=== PATIENT | male | born 1975 | race Caucasian/White ===

== ENCOUNTER 2019-12-24 20:29 | Emergency (ER) | payer OTHER, SELFPAY ==
[2019-12-24 20:39] VITALS: BP 170/103; PULSE 95; RESP 19; O2SAT 97; BMI 36.9
[2019-12-24 20:48] VITALS: BP 170/103; PULSE 95; RESP 19; TEMP 36.7; O2SAT 97; BMI 37.0
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
[2019-12-24 21:06] VITALS: BP 170/103; PULSE 95; RESP 19; TEMP 36.7; O2SAT 97
== END 2019-12-24 21:20 | disposition home or self-care (01) ==
PROVIDERS: Emergency Provider Nurse Practitioner Family
DX: T23.252A Burn of second degree of left palm, initial encounter (principal); X15.0XXA Contact with hot stove (kitchen), initial encounter; Y92.010 Kitchen of single-family (private) house as the place of occurrence of the external cause; Z23 Encounter for immunization
CPT/HCPCS: 90471; 90715; 99201

== ENCOUNTER 2020-02-22 08:56 | Emergency (ER) | payer OTHER, SELFPAY ==
[2020-02-22 09:00] VITALS: BP 149/85; PULSE 87; RESP 14; TEMP 36.9; O2SAT 96; BMI 34.4
--- NOTE | 2020-02-22 09:33 | HMH.EDUTC ---
[facility] [place] Dis[place] Clinical Impression: Malaise Disposition: Home, Self-Care Condition on Discharge: Good Instructions: Preventing the Spread of Coronavirus Discharge Instructions Additional Instructions: You have been tested for COVID19. Please assume you are positive and isolate as if you are positive until results received. I have sent some medicine to help your symptoms. Please return if you get worse. Vitamin D, Vitamin C and zinc might also help. Prescriptions: Ondansetron [Ondansetron Odt 8mg Tab] 8 mg PO TID PRN 10 Days #30 tab PRN Reason: Nausea Transmission Status: Pending to [facility] predniSONE [Prednisone 20mg Tab] 20 mg PO BID 5 Days #10 tab Transmission Status: Pending to [facility] Albuterol Sulfate [Proair Hfa] 2 puffs IH Q4HP PRN 30 Days #1 hfa.aer.ad PRN Reason: Wheezing Transmission Status: Pending to [facility] Referrals: PCP,No [Primary Care Provider] - Forms: Work/School Release Time of Disposition: 09:37 Medical Decision Making - Roby Inquiry Pt receiving controlled substance: No Vital Signs: 02/22/20 09:00 Temperature 98.5 F Temperature Source Oral Pulse Rate [Left Brachial] 87 Respiratory Rate 14 Blood Pressure [Left Arm] 149/85 H Blood Pressure Mean [Left Arm] 106 Blood Pressure Source [Left Arm] Automatic Cuff Blood Pressure Position [Left Arm] Sitting 02 Sat by Pulse Oximetry 96 Oxygen Delivery Method Room Air Orders (Tests/Meds): ORDERS Category Date Time Status Covid-19 Nasal PCR Sendout P&C Routine Lab 02/22/20 09:03 Ordered [facility] [place] HPI - General Stated complaint: headcahe, stomach ache, nausea, diarrhea Time Seen by Provider: 02/22/20 09:33 Mode of Arrival: Ambulatory Source of Information: Patient Limitations: No Limitations Description of Symptoms (Recalled from Triage Doc. by RN): PATIENT C/O HEADACHES, SOA, NAUSEA, AND DIARRHEA X 2 DAYS HEENT Symptoms (Recalled from RN notes): Yes Resp Symptoms (Recalled from RN notes): No Skin Symptoms (Recalled from RN notes): No MS Symptoms (Recalled from RN notes): No Functional Status (Recalled from RN notes): WNL - History of Present Illness Provider Complaint: Headache, stomach ache, nausea, diarrhea X 2 days. BOdy aches, chills but no fever. No specific exposure to COVID19. Onset (ago): day(s) (2) Location: chest, abdomen Relieving factors: none Exacerbating factors: none Associated symptoms: headaches, malaise, nausea/vomiting Treatments prior to arrival: none - Related Data Previous Rx's Medication Instructions Recorded Albuterol Sulfate [Proair Hfa] 2 puffs IH Q4HP PRN 30 Days #1 02/22/20 hfa.aer.ad Ondansetron [Ondansetron Odt 8mg 8 mg PO TID PRN 10 Days #30 tab 02/22/20 Tab] predniSONE [Prednisone 20mg 20 mg PO BID 5 Days #10 tab 02/22/20 Tab] Allergies Allergy/AdvReac Type Severity Reaction Status Date / Time No Known Allergies Allergy Verified 12/24/19 20:51 - Worker's Comp Is this a Worker's Comp case?: No [facility] History - Hepatitis A Screen Drug use history?: No High risk sexual behaviors?: No History of sexually transmitted infection?: No Currently employed?: No Childcare worker?: No Do you have indoor plumbing?: Yes Do you have electricity?: Yes Attestation statement:: This patient has been screened for Hepatitis A risk factors. I have reviewed the patient's past medical history: Yes - Social History Alcohol Intake: never Occupational Status: other ROS Obtained: Yes All systems reviewed & no additional complaints - Constitutional Constitutional: Reports body ache, Reports chills, Denies fever(s), Reports headache(s), Reports malaise - ENT Ears, Nose, Mouth, and Throat: Reports headache(s) - Respiratory Respiratory: Reports shortness of breath - Gastrointestinal Gastrointestingal: Reports: diarrhea, vomiting Physical Exam - General General appearance: alert, in no apparent distress, oth
[2020-02-22 09:40] VITALS: BP 149/85; PULSE 87; RESP 14; TEMP 36.9; O2SAT 96
[2020-02-23 11:56] LABS: Covid-19 Nasal PCR Sendout P&C Negative
== END 2020-02-22 09:43 | disposition home or self-care (01) ==
PROVIDERS: Emergency Provider Physician Assistant
DX: Z20.822 Contact with and (suspected) exposure to COVID-19 (principal); R53.1 Weakness; R51.9 Headache, unspecified; R11.0 Nausea; R19.7 Diarrhea, unspecified
CPT/HCPCS: 99202; G0463; U0004

== ENCOUNTER 2020-11-26 19:16 | Emergency (ER) | payer OTHER, SELFPAY ==
--- NOTE | 2020-11-26 20:22 | PC.NURSE ---
Pt just wants to be tested for covid. Romeo Torres wrote an outpt order. VSS. BP 143/89, HR 86, RR19, Sp02 99%, temp 99.0
[2020-11-26 20:25] VITALS: BP 00/00; PULSE 0; RESP 0; TEMP -17.7; TEMP 0
== END 2020-11-26 20:25 | disposition left against medical advice (07) ==
PROVIDERS: Emergency Provider Student in an Organized Health Care Education/Training Program; PCP Nurse Practitioner Family
DX: Z53.21 Procedure and treatment not carried out due to patient leaving prior to being seen by health care provider (principal)
CPT/HCPCS: 99211

== ENCOUNTER → 2020-11-26 20:25 | Outpatient (CLI) | payer OTHER, SELFPAY ==
[2020-11-26 20:58] LABS: Influenza A, PCR Not Detected (NotDetected); Influenza B, PCR Not Detected (NotDetected)
[2020-11-26 21:41] LABS: Coronavirus 19, PCR Detected (NotDetected)
== END ==
PROVIDERS: PCP Nurse Practitioner Family; Visit Provider Emergency Medicine
DX: Z20.822 Contact with and (suspected) exposure to COVID-19 (principal); U07.1 COVID-19
CPT/HCPCS: C9803; U0003; U0005

== ENCOUNTER → 2021-11-30 13:35 | Outpatient (CLI) | payer OTHER, SELFPAY ==
--- NOTE | 2021-11-30 13:36 | CA_ITS ---
APPROVED REPORT EXAM: Comprehensive 2D, Doppler, and color-flow Echocardiogram Poultry Field Service Technician: Aliyah Askew CRT Ht: 5 ft 7 in Wt: 232lbs BSA: 2.15 BP: 140/80 mmHg Indications: cp, neck pain, cirrhosis 2D Dimensions LVOT 2.01 cm (M/F) 1.5-2.5 LA Volume 58.90 mL LA Volume Index 26.70 mL/m2 (M/F) 16-34 M-Mode Dimensions RVDd 1.93 cm (0.9-2.6) LA Diam 4.54 cm (1.9-4.0) LVDd 5.83 cm (3.5-5.7) Ao Diam 3.92 cm (2.0-3.7) LVDs 3.59 cm (3.5-5.7) IVSd 1.23 cm (0.6-1.1) PWd 1.06 cm (0.6-1.1) EF (Teich) 67.90% FS 38.40% EDV (Teich) 168.50 mL TAPSE 3.15 (<1.7) ESV (Teich) 54.10 mL LV Diastology E Decel Time 200.00 (160-240 msec) E/A Ratio 1.05 MED E' 8.70 (< 7 cm/sec) MED A' 12.10 cm/s E'/MED E' Ratio 12.10 (>14) LAT E' 14.00 (<10 cm/sec) LAT A' 9.40 cm/s E/LAT E' Ratio 7.52 (>14) Aortic Valve AO Peak GR. 12.90 mmHg Mitral Valve MV A Velocity 100.00 (40-130 cm/s) E/A Ratio 1.05 MV Decel. Time 200.00 (160-240 ms) Pulmonary Valve PV Peak Velocity 226.00 (50-150 cm/s) Tricuspid Valve TR P. Velocity 290.00 cm/s RAP Estimate 10.00 mmHg RVSP 43.70 mmHg Left Ventricle Left atrium is normal size, left ventricle is normal size, there is no concentric left ventricular hypertrophy, estimated ejection fraction 55% with no regional wall motion abnormality, diastolic parameters are within normal range. Right Ventricle Right atrium and right ventricle are normal size and contractility. Aortic Valve Aortic valve is grossly normal, there is no aortic stenosis or aortic insufficiency. Mitral Valve Mitral valve grossly normal, there is trace mitral regurgitation. Tricuspid Valve Tricuspid grossly normal, there is trace tricuspid regurgitation, calculated right ventricular systolic pressure within normal range. Pulmonic Valve Pulmonic valve is poorly visualized. Great Vessels Aortic root is normal size. Inferior vena cava is normal size with normal inspiratory collapse. Pericardium No significant pericardial effusion noted. Conclusion 1. Normal left ventricular size preserved left ventricular systolic function, estimated ejection fraction 55% with no regional wall motion abnormality, diastolic parameters are within normal range. 2. Trace mitral and tricuspid regurgitation. Calculated right ventricular systolic pressure within normal range. 3. No significant pericardial effusion. 4. Inferior vena cava normal size with normal inspiratory collapse. Electronically signed by : Saleem Corral MD 11/30/2021 20:08:43
--- NOTE | 2021-11-30 13:36 | CA_ITS ---
APPROVED REPORT Exam: Exercise Treadmill Technologist: Cherelle Montoya, Ht: 5 ft 7 in Wt: 232 lbs BSA: 2.15 m2 HR: 69 bpm BP: 122/66 mmHg Rhythm: SR Medical History Medical History: HTN Medications: Lisinopril,,,,, Aspirin,,,,, Metoprolol,,,,, ONdansetron,,,,, Multivitamin,,,,, BuPRenorphinE,,,,, NaloXone,,,,, Allergies: No known drug allergies Cardiac Risk Factors: HTN, FHX of CAD Stress Test Details Test: Rik HR Resting HR: 71 bpm Max Heart Rate (APMHR): 174 bpm Max HR Achieved: 149 bpm Target HR (85% APMHR): 147 bpm % of APMHR: 85 Recovery HR: 69 bpm BP Resting BP: 122/66 mmHg Max BP: 189/88 mmHg Recovery BP: 137.0/81.0 mmHg ECG Resting ECG: SR Clinical Exercise duration: 09:57 min Highest Stage Achieved: Exercise capacity: 12.8 METs Stress ECG Conclusion PT HAD SOA WITH PEAK EXERCISE. NO CP. PAC NOTED. No ECG changes of ischemia. Normal test Test Summary REST . . . . . . . Standing REST . . . . . . . Sitting REST 11:56 0.0 0.0 71 . 122/ 66 . . Stage 1 01:00 10.0 1.7 96 . . . . Stage 1 02:00 10.0 1.7 92 . . . . Stage 1 03:00 10.0 1.7 96 . 130/ 80 . . Stage 2 01:00 12.0 2.5 106 . . . . Stage 2 02:00 12.0 2.5 108 . . . . Stage 2 03:00 12.0 2.5 111 . 135/ 78 . . Stage 3 01:00 14.0 3.4 124 . . . . Stage 3 02:00 14.0 3.4 129 . . . . Stage 3 03:00 14.0 3.4 137 . . . . Stage 4 00:57 16.0 4.2 148 . . . Stop exercise at 09:57 RECOVERY 01:00 0.0 0.0 122 . . . . RECOVERY 02:00 0.0 0.0 102 . 189/ 88 . . RECOVERY 03:00 0.0 0.0 77 . 174/ 73 . . RECOVERY 04:00 0.0 0.0 73 . 174/ 73 . . RECOVERY 05:00 0.0 0.0 69 . 150/ 72 . . RECOVERY 05:27 0.0 0.0 72 . 137/ 81 . . Electronically signed by : Rakesh Sanabria MD 11/30/2021 16:35:50
[2021-11-30 15:25] LABS: Basophils % 0.3 % (0.1-2.0); Eosinophils # 0.2 K/mm3 (0.0-0.4); Eosinophils % 2.1 % (0.1-12.0); Hematocrit 43.3 % (42.0-52.0); Hemoglobin 13.3 g/dL (14.1-18.0); Lymphocytes % 18.2 % (10-50); Mean Corpuscular HGB Conc 30.7 g/dL (31.8-35.4); Mean Corpuscular Hemoglobin 28.7 pg (27.0-31.2); Mean Corpuscular Volume 93.5 fl (80-94); Mean Platelet Volume 9.6 fl (7.4-10.4); Monocytes # 0.6 K/mm3 (0.1-1.0); Monocytes % 5.2 % (1.7-9.3); Neutrophils # 8.2 K/mm3 (1.8-7.8); Neutrophils % 74.2 % (37.0-80.0); Platelet Count 314 K/mm3 (142-424); Red Blood Count 4.64 M/mm3 (4.60-6.20); Red Cell Distribution Width 12.7 % (11.5-17.5); White Blood Count 11.1 K/mm3 (4.8-10.8)
[2021-11-30 15:43] LABS: Ammonia 10 umol/L (9-30)
[2021-11-30 15:44] LABS: Prothrombin Time 10.8 seconds (10.1-12.5)
[2021-11-30 16:45] LABS: Alanine Aminotransferase 29 U/L (12-78); Albumin Level 4.2 g/dl (3.5-5.0); Albumin/Globulin Ratio 1.4 (1.1-1.8); Alkaline Phosphatase 94 U/L (38-126); Anion Gap 16.5 mEq/L (5-15); Aspartate Amino Transferase 27 U/L (17-59); Bilirubin,Total 0.2 mg/dl (0.2-1.3); Blood Urea Nitrogen 16 mg/dl (9-20); Calcium 9.2 mg/dl (8.4-10.2); Carbon Dioxide 28 mmol/L (22.0-30.0); Chloride 102 mmol/L (98-107); Estimated Glomerular Filt Rate 104 ml/min (>60); GFR (African American) 126 ML/MIN (>60); Globulin 2.9 g/dL (1.3-3.2); Glucose 83 mg/dl (74-100); Potassium 4.5 mmoL/L (3.5-5.1); Sodium 142 mmol/L (136-145); Total Protein,Serum 7.1 g/dl (6.3-8.2)
== END ==
PROVIDERS: Student in an Organized Health Care Education/Training Program; PCP Family Medicine; Visit Provider Family Medicine
DX: R07.9 Chest pain, unspecified (principal); R10.11 Right upper quadrant pain
CPT/HCPCS: 36415; 80053; 82140; 85025; 85610; 93017; 93306

== ENCOUNTER 2023-05-24 16:31 | Outpatient (CLI) | payer OTHER, SELFPAY ==
[2023-05-24 16:46] LABS: Basophils % 0.4 % (0.1-2.0); Eosinophils # 0.3 K/mm3 (0.0-0.4); Eosinophils % 2.9 % (0.1-12.0); Hemoglobin 13.7 g/dL (14.1-18.0); Lymphocytes # 2.1 K/mm3 (0.7-4.5); Lymphocytes % 19.8 % (10-50); Mean Corpuscular HGB Conc 32.7 g/dL (31.8-35.4); Mean Corpuscular Hemoglobin 30.5 pg (27.0-31.2); Mean Corpuscular Volume 93.5 fl (80-94); Mean Platelet Volume 9.3 fl (7.4-10.4); Monocytes # 0.6 K/mm3 (0.1-1.0); Monocytes % 5.9 % (1.7-9.3); Neutrophils # 7.5 K/mm3 (1.8-7.8); Platelet Count 283 K/mm3 (142-424); Red Blood Count 4.49 M/mm3 (4.60-6.20); Red Cell Distribution Width 13.5 % (11.5-17.5); White Blood Count 10.6 K/mm3 (4.8-10.8)
[2023-05-24 17:23] LABS: Alanine Aminotransferase 58 U/L (12-78); Albumin Level 4.6 g/dl (3.5-5.0); Albumin/Globulin Ratio 1.5 (1.1-1.8); Alkaline Phosphatase 77 U/L (38-126); Anion Gap 14.5 mEq/L (5-15); Aspartate Amino Transferase 63 U/L (17-59); Bilirubin,Total 0.5 mg/dl (0.2-1.3); Blood Urea Nitrogen 13 mg/dl (9-20); Calcium 9.8 mg/dl (8.4-10.2); Carbon Dioxide 27 mmol/L (22.0-30.0); Chloride 106 mmol/L (98-107); Estimated Glomerular Filt Rate 103 ml/min (>60); GFR (African American) 125 ML/MIN (>60); Globulin 3.1 g/dL (1.3-3.2); Glucose 100 mg/dl (74-100); Potassium 4.5 mmoL/L (3.5-5.1); Sodium 143 mmol/L (136-145); Total Protein,Serum 7.7 g/dl (6.3-8.2)
[2023-05-24 17:28] LABS: C-Reactive Protein 5.5 mg/L (0-4)
[2023-05-24 17:53] LABS: Erythrocyte Sedimentation Rate 24 mm/hr (0-15)
== END 2023-05-24 23:59 | disposition home or self-care (01) ==
LOC: LAB.DROPOF 16:31
PROVIDERS: PCP Family Medicine; Visit Provider Family Medicine
DX: R30.0 Dysuria (principal); R10.9 Unspecified abdominal pain
CPT/HCPCS: 80053; 85025; 85651; 86140

== ENCOUNTER 2023-06-30 15:07 | Emergency (ER) | payer OTHER, SELFPAY ==
--- NOTE | 2023-06-30 15:06 | ECG_ITS ---
APPROVED REPORT Exam: Resting ECG HR:161 bpm ECG Measurements Heart Rate 161 AXES QRSd 80 QRS 22 QT 263 T 50 QTc 352 Conclusion ATRIAL FLUTTER/TACHYCARDIA WITH RAPID VENTRICULAR RESPONSE MODERATE ST DEPRESSION [0.05+ mV ST DEPRESSION] CRITICAL TEST RESULT INTERPRETATION BASED ON A DEFAULT AGE OF 40 YEARS UNCONFIRMED REPORT Electronically signed by : Claus Ndiaye, 06/30/2023 23:05:42
--- NOTE | 2023-06-30 15:23 | XR_ITS ---
FINAL REPORT CLINICAL HISTORY: dyspnea COMPARISON: None FINDINGS: A single portable view of the chest was obtained. The heart size and pulmonary vascularity are within normal limits. The mediastinum is within normal limits. No acute pulmonary abnormality is identified. The bony thorax is intact. IMPRESSION: No acute pulmonary abnormality is identified. Reviewed, Interpreted and Dictated by Zach Barker MD Transcribed by Sandrita Hdez Authenticated and [facility]
[2023-06-30 15:28] LABS: Basophils # 0.1 K/mm3 (0-0.2); Basophils % 0.6 % (0.1-2.0); Eosinophils # 0.2 K/mm3 (0.0-0.4); Eosinophils % 1.2 % (0.1-12.0); Hematocrit 43.4 % (42.0-52.0); Hemoglobin 14.4 g/dL (14.1-18.0); Lymphocytes # 3.2 K/mm3 (0.7-4.5); Lymphocytes % 24.3 % (10-50); Mean Corpuscular HGB Conc 33.3 g/dL (31.8-35.4); Mean Corpuscular Hemoglobin 30.9 pg (27.0-31.2); Mean Corpuscular Volume 92.8 fl (80-94); Mean Platelet Volume 9.5 fl (7.4-10.4); Monocytes # 0.8 K/mm3 (0.1-1.0); Monocytes % 5.9 % (1.7-9.3); Neutrophils # 8.9 K/mm3 (1.8-7.8); Neutrophils % 68.1 % (37.0-80.0); Platelet Count 292 K/mm3 (142-424); Red Blood Count 4.67 M/mm3 (4.60-6.20); Red Cell Distribution Width 13.9 % (11.5-17.5); White Blood Count 13.1 K/mm3 (4.8-10.8)
[2023-06-30 15:33] LABS: Chloride 106 mmol/L (98-107); Potassium 3.4 mmoL/L (3.5-5.1); Sodium 143 mmol/L (136-145)
[2023-06-30 15:34] VITALS: BP 188/126; PULSE 172; RESP 23; TEMP 37.2; O2SAT 98; BMI 34.5
[2023-06-30 15:35] LABS: Alanine Aminotransferase 60 U/L (12-78); Aspartate Amino Transferase 48 U/L (17-59); Blood Urea Nitrogen 10 mg/dl (9-20); Estimated Glomerular Filt Rate 103 ml/min (>60); GFR (African American) 125 ML/MIN (>60)
[2023-06-30 15:36] LABS: Albumin Level 4.5 g/dl (3.5-5.0); Albumin/Globulin Ratio 1.3 (1.1-1.8); Alkaline Phosphatase 85 U/L (38-126); Anion Gap 12.4 mEq/L (5-15); Bilirubin,Total 0.3 mg/dl (0.2-1.3); Calcium 9.2 mg/dl (8.4-10.2); Carbon Dioxide 28 mmol/L (22.0-30.0); Globulin 3.5 g/dL (1.3-3.2); Glucose 122 mg/dl (74-100); Magnesium 1.9 mg/dl (1.6-2.3)
--- NOTE | 2023-06-30 15:40 | ED_ITS ---
Discharge Plan Disposition Patient Disposition: Home, Self-Care Prescriptions Prescriptions: No Action multivitamin Tablet 1 tab PO DAILY buprenorphine-naloxone 8-2 mg tablet, sublingual 2 tab SL DAILY ondansetron HCl 4 mg tablet 4 mg PO DAILY PRN (Reason: nausea and vomiting) 30 Days Qty: 30 0RF doxepin 50 mg capsule 100 mg PO HS 30 Days Qty: 60 3RF mirtazapine 15 mg tablet 15 mg PO DAILY 30 Days Qty: 30 3RF omeprazole 20 mg capsule,delayed release(DR/EC) 20 mg PO DAILY 30 Days Qty: 30 2RF lisinopril 20 mg tablet 20 mg PO DAILY 30 Days Qty: 30 2RF metoprolol succinate 25 mg tablet extended release 24 hr 25 mg PO DAILY 30 Days Qty: 30 2RF lactulose 10 gram/15 mL solution 10 ml PO TID PRN (Reason: constipation) Qty: 946 3RF aspirin 81 mg tablet,delayed release (DR/EC) 81 mg PO DAILY Qty: 90 0RF Referrals Follow up/Referrals: Nathanael Rowland MD [Primary Care Provider] - See instructions Marlo Cornejo MD [Staff Physician] - See instructions Activity Restrictions/Add. Instructions Additional Instructions/Restrictions: Follow-up with her moving picture producer Dr. Cornejo for further evaluation and management. If your atrial flutter returns please return to the emergency department. Please take the daily aspirin as discussed. Clinical Impressions Clinical Impression: Atrial flutter with rapid ventricular response, Hypokalemia Discharge ED Provider: Hannah Ndiaye HPI General Chief Complaint: Arrhythmia/Palpitations Stated Complaint: Arrythmia Time Seen by Provider: 06/30/23 15:14 History of Present Illness HPI narrative: Patient is a 48-year-old male presenting today with an arrhythmia. States intermittently over the last several years he has been having tacky dysrhythmias that only lasts a few moments has never been diagnosed with any specific arrhythmia because has not been evaluated during these episodes by physician. Has never had an episode that lasted more than a few minutes. Was in his normal state of health at a follow-up appointment for some rheumatologic complaints when he all of a sudden developed chest pain with palpitations. Arthur like he was in a pass out got lightheaded and diaphoretic at the same time EMS was called they found him to be in a narrow complex tachycardic rhythm no medications were given he was brought to the emergency department for further evaluation and management. He states that he is supposed to be on metoprolol but he is unsure as to whether or not he has been taking this medication. He denies having had any history of atrial fibrillation or atrial flutter or any other ventricular arrhythmia. Denies any exertional symptoms does have some mild shortness of breath associated with this. No other preceding symptoms today. He does not take any anticoagulation or antiplatelet agents. Related Data Home Medications Medication Instructions Recorded Confirmed buprenorphine 8 mg-naloxone 2 mg 2 tab sublingual DAILY 09/15/21 06/30/23 sublingual tablet multivitamin 1 tab PO DAILY 09/15/21 06/30/23 Previous Rx's Medication Instructions Recorded ondansetron HCl 4 mg tablet 4 mg PO DAILY PRN nausea and 12/24/22 vomiting 30 days #30 tabs doxepin 50 mg capsule 100 mg (2 x 50 mg) PO HS anxiety 05/23/23 30 days #60 caps lisinopril 20 mg tablet 20 mg PO DAILY HTN 30 days #30 tabs 05/23/23 mirtazapine 15 mg tablet 15 mg PO DAILY sleep 30 days #30 05/23/23 tabs omeprazole 20 mg capsule,delayed 20 mg PO DAILY acid reflux 30 days 05/23/23 release #30 caps metoprolol succinate 25 mg 25 mg PO DAILY HTN 30 days #30 tabs 06/08/23 tablet,extended release 24 hr lactulose 10 gram/15 mL oral 10 ml PO TID PRN constipation #946 06/28/23 solution mL aspirin 81 mg tablet,delayed 81 mg PO DAILY #90 tabs 06/29/23 release Allergies Allergy/AdvReac Type Severity Reaction Status Date / Time No Known Allergies Allergy Verified 06/30/23 14:16 [facility] Disclaimer: The information contained in this section may have been updated after the patient was seen, as this information can be updated by other users. Medical History Hepatitis A Chronic liver disease Chronic kidney disease Hepatic encephalopathy Hepatitis B Hypertension Surgical History History of arthroscopic knee surgery Family History Father Heart attack Hypertension Grandfather Heart attack Hypertension Mother Heart attack Hypertension Social History Smoking Status: Never smoker second hand exposure: Yes alcohol intake: former substance use type: former substance user current occupational status: unemployed Travel in the last 8 weeks: None household members: significant other housing: house ROS Obtained: Yes All systems reviewed & no additional complaints except as documented Physical Exam General General appearance: in distress (Diaphoretic ill-appearing) Respiratory Respiratory exam: Present normal lung sounds bilaterally; Absent respiratory distress Cardiovascular Cardiovascular exam: Present tachycardia (Heart rate 1 60-1 90 on my exam and regular cool extremities and diaphoretic poor peripheral perfusion) Abdominal Exam Abdominal exam: Present soft; Absent distention or tenderness Neurological Exam Neurological exam: Present alert and oriented X3 Psychiatric Psychiatric exam: Present anxious HEART Score HEART Score HEART Score assessment performed?: Yes History (anamnesis): Slightly suspicious ECG: Non-specific disturbance Age: 45-65 years Risk factors: 1-2 risk factors Troponin: </= normal limit HEART Score: 3 Critical Care Critical Care Time Critical Care Time: Yes Attestation: On 06/30/23, the high probability of a clinically significant, sudden or life threatening deterioration of the following system(s) required my full and direct attention, intervention and personal management. The time I documented below is in addition to time spent performing reported procedures but includes the following listed in this critical care notation. Total Time Total Critical Care Time: 35 Medical Decision Making Roby Inquiry Pt receiving controlled substance: No Vital Signs Vital Signs: 06/30/23 15:34 Temperature 98.9 F Temperature Source Oral Pulse Rate [Left Radial] 172 H Respiratory Rate 23 Blood Pressure [Right Arm] 188/126 H Blood Pressure Mean [Right Arm] 146 02 Sat by Pulse Oximetry 98 Oxygen Delivery Method Nasal Cannula Oxygen Flow Rate (LPM) 2 Lab Data Lab results reviewed: Yes I reviewed the patient's lab results. Labs: Lab Results 06/30/23 15:20: WBC 13.1 H, RBC 4.67, Hgb 14.4, Hct 43.4, MCV 92.8, MCH 30.9, MCHC 33.3, RDW 13.9, Plt Count 292, MPV 9.5, Neut % (Auto) 68.1, Lymph % (Auto) 24.3, Stearns % (Auto) 5.9, Eos % (Auto) 1.2, Baso % (Auto) 0.6, Neut # (Auto) 8.9 H, Lymph # (Auto) 3.2, Stearns # (Auto) 0.8, Eos # (Auto) 0.2, Baso # (Auto) 0.1, Sodium 143, Potassium 3.4 L, Chloride 106, Carbon Dioxide 28, Anion Gap 12.4, BUN 10, Creatinine 0.80, Estimated GFR 103, Est GFR ( Amer) 125, Glucose 122 H, Calcium 9.2, Magnesium 1.9, Total Bilirubin 0.3, AST 48, ALT 60, Alkaline Phosphatase 85, Troponin I < 0.01, Total Protein 8.0, Albumin 4.5, Globulin 3.5 H, Albumin/Globulin Ratio 1.3, TSH 2.37 06/30/23 15:20 06/30/23 15:20 Response Orders (Tests/Meds): ED MEDICATIONS Discontinued Medications Generic Name Dose Route Start Last Admin Trade Name Freq PRN Reason Stop Dose Admin Lactated Ringer's 1,000 mls @ 999 mls/hr 06/30/23 15:30 06/30/23 16:04 Lactated Ringer's 1000 Ml Bag IV 06/30/23 16:30 999 mls/hr .Q1H1M JARRED Administration Magnesium Oxide 400 mg 06/30/23 16:04 06/30/23 16:13 Magnesium Oxide 400mg Tablet PO 06/30/23 16:05 400 mg ONCE ONE Administration Potassium Chloride 60 meq 06/30/23 16:04 06/30/23 16:13 Potassium Chloride 20meq Tab PO 06/30/23 16:05 60 meq ONCE ONE Administration ORDERS Category Date Time Status CXR --portable [XR chest portable] Stat Exams 06/30/23 15:23 Completed CBC w/Auto Diff [Complete Blood Count Auto Diff] Stat Lab 06/30/23 15:20 Completed CMP [Comprehensive Metabolic Panel] Stat Lab 06/30/23 15:20 Completed Magnesium Stat Lab 06/30/23 15:20 Completed TSH [Thyroid Stimulating Hormone] Stat Lab 06/30/23 15:20 Completed Trop I [Troponin I] Stat Lab 06/30/23 15:20 Completed Troponin I Q3H Lab 06/30/23 18:30 Ordered Troponin I Q3H Lab 06/30/23 21:30 Ordered UDS [Drug Screen,Urine] Stat Lab 06/30/23 15:23 Ordered ECG Data Tracing #1: Attestation: I reviewed this ECG and interpreted as documented below: ECG Narrative: Ventricular rate of 161 atrial flutter with rapid ventricular response some ST depressions in the inferior and anterolateral leads no significant ST elevations normal axis Tracing #2: Attestation: I reviewed this ECG and interpreted as documented below: ECG Narrative: Ventricular rate of 76 normal sinus rhythm no acute ischemic changes noted there is an isolated T wave inversion in lead III but no contiguous leads intervals are maintained no conduction abnormalities noted overall normal EKG MDM Narrative Medical Decision Narrative: Very ill-appearing 48-year-old male presenting today with tacky dysrhythmia diaphoresis lightheadedness feeling like he is going to pass out. He was significant tachycardic on my initial evaluation a twelve-lead EKG was performed which appeared to be atrial flutter with 2 1 conduction no obvious ischemic changes noted there were clearly discernible P waves at a rate of about 300 this is not consistent with sinus tachycardia, RR intervals were maintained this is not consistent with atrial fibrillation. We attempted vagal maneuvers including blowing into a syringe ice in his axilla and his neck holding his legs up which were unsuccessful. Patient felt like he was going to pass out and was having significant chest pain associated with this at which point I decided I was going to do electrical cardioversion. While we were getting equipment ready we put the pads on his chest anterior posterior position and were getting medications drawn up when he spontaneously converted into sinus tachycardia. Heart rate is now in the 110s. He states he feels much better after his spontaneous conversion. Will check electrolytes troponins basic workup and reassess. Reassessment 507 patient's been asymptomatic for several hours now heart rate in the 80s labs unremarkable aside from mildly depressed potassium which was replaced. Also was given magnesium to get his magnesium greater than 2. He has been advised to follow-up with our moving picture producer given the intermittent paroxysmal atrial flutter may benefit him to follow-up with an maintenance helper utility engineer and possibly have ablation. His [id number] score is 1 opted not to start anticoagulation but antiplatelet agents given the very short duration paroxysmal episodes that he has been having. He will take a daily aspirin and states that he already has been. His risk of thromboembolism is very low. Patient has been given return precaution was discharged in stable condition.
--- NOTE | 2023-06-30 15:49 | ECG_ITS ---
APPROVED REPORT Exam: Resting ECG HR:76 bpm ECG Measurements Heart Rate 76 AXES MD 179 P 51 QRSd 92 QRS 45 QT 367 T 6 QTc 398 Conclusion SINUS RHYTHM NORMAL ECG UNCONFIRMED REPORT Electronically signed by : Claus Ndiaye, 06/30/2023 23:05:35
[2023-06-30 15:55] LABS: Troponin I < 0.01 ng/ml (0.00-0.034)
[2023-06-30] MEDS: LACTATED RINGERS 1000ML 1,000 ML 999 ML IV (16:04)
[2023-06-30 16:07] LABS: Thyroid Stimulating Hormone 2.37 uIU/mL (0.465-4.68)
[2023-06-30] MEDS: MAGNESIUM OXIDE 400MG TABLET 400 MG PO (16:13)
[2023-06-30] MEDS: POTASSIUM CHLORIDE 20MEQ TAB 60 MEQ PO (16:13)
--- NOTE | 2023-06-30 17:02 | PC.NURSE ---
Dr. Ndiaye at BS to update pt on POC
[2023-06-30 17:21] VITALS: BP 148/106; PULSE 88; RESP 18; TEMP 37; O2SAT 96
== END 2023-06-30 17:21 | disposition home or self-care (01) ==
PROVIDERS: Emergency Provider Student in an Organized Health Care Education/Training Program; PCP Family Medicine
DX: I48.91 Unspecified atrial fibrillation; R07.9 Chest pain, unspecified; E87.6 Hypokalemia; I10 Essential (primary) hypertension
CPT/HCPCS: 71045; 80053; 83735; 84443; 84484; 85025; 93005; 96360; 99285

== ENCOUNTER 2023-07-05 10:51 | Outpatient (CLI) | payer OTHER, SELFPAY | END 2023-07-05 23:59 | disposition home or self-care (01) | LOC: RT 10:52 | PROVIDERS: PCP Family Medicine; Visit Provider Physician Assistant | DX: R07.9 Chest pain, unspecified (principal); I48.92 Unspecified atrial flutter; R06.00 Dyspnea, unspecified; R53.83 Other fatigue; R00.2 Palpitations | CPT/HCPCS: 93270 ==

== ENCOUNTER 2023-09-01 10:34 | Outpatient (CLI) | payer OTHER, SELFPAY ==
--- NOTE | 2023-09-01 | CA_ITS ---
APPROVED REPORT Exam: Pharmacologic Technologist: Linda Francisco, Ht: 5 ft 7 in Wt: 241 lbs BSA: 2.19 m2 HR: 74 bpm BP: 178/95 mmHg Rhythm: NSR Medical History Medications: Omeprazole,,,,, Aspirin,,,,, Metoprolol Succinate,,,,, Suboxone,,,,, DOxepin,,,,, Lactulose,,,,, Mirtazapine,,,,, Lisinpril,,,,, Cardiac Risk Factors: HTN, FHX of CAD Stress Test Details Test: LEXISCAN HR Resting HR: 82 bpm Max Heart Rate (APMHR): 172 bpm Max HR Achieved: 99 bpm Target HR (85% APMHR): 146 bpm % of APMHR: 58 Recovery HR: 81 bpm BP Resting BP: 178/95 mmHg Max BP: 204/114 mmHg Recovery BP: 188.0/89.0 mmHg ECG Resting ECG: NSR Stress ECG: No significant ST changes Arrhythmia: None Clinical Exercise duration: 04:00 min Highest Stage Achieved: Exercise capacity: 1.0 METs Stress ECG Conclusion During lexiscan pt experinced chest discomfort, SOA, and brief headache. No arrhythmias noted. No significant ST changes. Conclusion: Unremarkable lexiscan stress. Poorly controlled HTN, clonidine 0.1mg PO given at 13:05. Patient will monitor BP at home and notify cardiology clinic or PCP if remains elevated. Test Summary REST . . . . . . . Sitting REST 03:28 . . 82 . 178/ 95 . . Stage 1 01:00 . . 95 . . . . Stage 2 01:00 . . 85 . . . . Stage 3 01:00 . . 92 . 201/116 . . Stage 4 01:00 . . 76 . . . Stop exercise at 04:00 RECOVERY 01:00 . . 89 . 191/105 . . RECOVERY 02:00 . . 79 . 191/105 . . RECOVERY 03:00 . . 81 . 191/105 . . RECOVERY 04:00 . . 85 . 188/ 89 . . RECOVERY 05:00 . . 81 . 188/ 89 . . RECOVERY 06:00 . . 70 . 188/ 89 . . RECOVERY 07:00 . . 79 . 188/ 89 . . RECOVERY 08:00 . . 75 . 188/ 89 . . RECOVERY 09:00 . . 79 . 188/ 89 . . RECOVERY 10:00 . . 79 . 204/114 . . RECOVERY 10:11 . . 78 . 204/114 . . Electronically signed by : Angeline Carvajal MD 09/01/2023 22:58:54
--- NOTE | 2023-09-01 10:35 | CA_ITS ---
APPROVED REPORT EXAM: Comprehensive 2D, Doppler, and color-flow Echocardiogram [employer] System Operator: PATRICIO Arce, RVS Ht: 5 ft 7 in Wt: 241lbs BSA: 2.19 BP: 167/90 mmHg Indications: SVT, A-FLUTTER, Fanily H/O AFIB, Angina, EVANS Echo Enhancing Agent Comments: TDS: due to patoient constant motion and hyperventillation throughout exam. 2D Dimensions Left Atrium 4.00 cm LA Volume 71.20 mL LA Volume Index 31.80 mL/m2 (M/F) 16-34 M-Mode Dimensions RVDd 2.58 cm (0.9-2.6) LA Diam 4.74 cm (1.9-4.0) LVDd 5.19 cm (3.5-5.7) LVDs 3.44 cm (3.5-5.7) IVSd 1.00 cm (0.6-1.1) PWd 0.86 cm (0.6-1.1) EF (Teich) 62.10% EPSs 0.90 cm FS 33.70% EDV (Teich) 128.90 mL TAPSE 1.79 (<1.7) ESV (Teich) 48.80 mL LV Diastology E Decel Time 173 (160-240 msec) E/A Ratio 0.91 MED A' 12.40 cm/s LAT A' 9.70 cm/s Aortic Valve AUGUSTINE Index 0.87 cm2/m2 AoV Peak Julian. 158.0 (50-130 cm/s) AO Peak GR. 10.00 mmHg AO Mean GR. 5.10 (<5 mmHg) AO VTI 31.8 (18-25 cm) AUGUSTINE (VTI) 1.94 (2.5-4.5 cm2) Mitral Valve MV A Velocity 115.0 (40-130 cm/s) E/A Ratio 0.91 Pulmonary Valve PV Peak Velocity 96.0 (50-150 cm/s) Tricuspid Valve TR P. Velocity 244.00 cm/s RAP Estimate 10.00 mmHg RVSP 33.80 mmHg Left Ventricle The left ventricle is normal size. The left ventricular systolic function is normal. The left ventricular ejection fraction is within the normal range. There is normal left ventricular wall thickness. There is normal LV segmental wall motion. The left ventricular diastolic function is normal. LVEF is 55%. Right Ventricle The right ventricle is normal size. The right ventricular systolic function is normal. Atria The left atrium size is normal. The right atrium size is normal. There is no Doppler evidence of interatrial shunt. Aortic Valve The aortic valve opens well. There is no aortic valvular stenosis. No aortic regurgitation is present. Mitral Valve The mitral valve is normal in structure. No evidence of mitral valve stenosis. There is no mitral valve regurgitation noted. Tricuspid Valve The tricuspid valve leaflets are thin and pliable. Trace tricuspid regurgitation. There is insufficient TR jet to estimate RVSP. Pulmonic Valve The pulmonary valve is normal in structure. Mild pulmonic regurgitation. The ascending aorta is not well-visualized. Great Vessels The aortic root is normal in size. IVC is normal in size and collapses >50% with inspiration. Pericardium There is no pericardial effusion. Other Information Study Quality: Fair Conclusion Normal biventricular systolic function. Mild PI. Electronically signed by : Angeline Carvajal MD 09/01/2023 22:51:10
--- NOTE | 2023-09-01 11:17 | NM_ITS ---
APPROVED REPORT Exam: Nuclear Stress Test Indication: cp..soa..palpitations..syncope..fatigue Patient Location: Outpatient Stress Tech: Linda GRIGGS Tech:Kianna Ramirez, ARRT RT(R)(N) Ht: 5 ft 10 in Wt: 230 lbs HR: 82 bpm BP: 178/95 mmHg BSA: 2.21 m2 Rhythm: NSR TID: 0.98 BMI: 32.9 History: cp..soa..palpitations..syncope..fatigue Procedure: Patient received 0.4 mg of intravenous Lexiscan, resting heart rate 82 bpm, resting blood pressure 178/95 mmHg, with Lexiscan maximum heart rate achieved was 99 bpm which is 85 % of the maximum predicted heart rate and blood pressure was 204/114 mmHg. With Lexiscan, patient denied any complaint of chest pain. Cardiac Stress and Resting SPECT Images: Cardiac Stress and Resting SPECT images were obtained using technetium 99m Myoview 32.8 mCi stress and 10.68 mCi at rest. The patient could not lie on his abdomen. Therefore, prone stress imaging could not be performed. This may affect the diagnostic interpretation of the study findings. Resting and stress imaging in supine positions demonstrate a medium sized, moderate, partially reversible perfusion defect in the basal to mid inferior LV wall. Gated imaging demonstrates normal global LV systolic function. There is mild hypokinesis of the basal inferior LV wall. LVEF is calculated at 56%. Conclusion: Medium sized, moderate, partially reversible perfusion defect in the basal to mid inferior LV wall. Findings are suggestive of partial reversible ischemia. Gated imaging demonstrates normal global LV systolic function. There is mild hypokinesis of the basal inferior LV wall. LVEF is calculated at 56%. Of note, the patient's blood pressure at the time of Lexiscan administration was markedly elevated (BP 204/114), for which he was administered 0.1 mg p.o. clonidine. BP control is recommended. Electronically signed by : Angeline Carvajal MD 09/01/2023 23:01:15
[2023-09-01] MEDS: ISOTOPE MYOVIEW (PER STUDY) 1 DOSE IV (13:38)
[2023-09-01] MEDS: SODIUM CHLORIDE 0.9% 10ML SYR (RAD ONLY) 10 ML IV ×2 (13:38→13:53)
[2023-09-01] MEDS: REGADENOSON 0.4MG/5ML SYRINGE 0.4 MG IV (13:53)
== END 2023-09-01 23:59 | disposition home or self-care (01) ==
LOC: RT 10:35
PROVIDERS: PCP Family Medicine; Visit Provider Physician Assistant
DX: R07.9 Chest pain, unspecified (principal); I48.92 Unspecified atrial flutter; R06.00 Dyspnea, unspecified; R53.83 Other fatigue; R00.2 Palpitations
CPT/HCPCS: 78452; 93017; 93018; 93306; A9502; J2785

== ENCOUNTER 2023-09-28 07:50 | Day surgery (SDC) | payer OTHER, SELFPAY ==
[2023-09-28] VITALS (15 sets, daily range): BP systolic 93–206; BP diastolic 59–100; PULSE 54–84; RESP 17–18; TEMP 36.8; O2SAT 97–100; BMI 38.5
--- NOTE | 2023-09-28 07:28 | IR_ITS ---
APPROVED REPORT Patient Location: Outpatient Epic Anesthesia Analyst: LOGAN Campbell RT (R) PROCEDURES Left heart catheterization Left ventriculogram Selective coronary angiogram Drug-eluting stent deployment to the mid dominant circumflex artery INDICATION Coronary artery disease, High risk abnormal Myoview, Angina pectoris Informed consent was obtained prior to the procedure. COMPLICATIONS None Estimated Blood Loss: Less than 10 mls TECHNIQUE One percent lidocaine used to anesthetize the right anterior aspect of the wrist. The right radial artery was accessed via the Seldinger technique. A 6 Khmer sheath was placed in the right radial artery. 2.5 mg of Verapamil, 800 mcg of nitroglycerin, 1mg Lidocaine and 5000 U Heparin were given through the arterial sheath. The papa catheter was also used to perform left heart catheterization, left ventriculogram and selective coronary angiogram. At the end the diagnostic angiogram therapeutic heparin was administered giving a therapeutic ACT and the guide catheter was placed in left main artery followed by Choice PT extra-support wire placed down the circumflex artery. A 3.5 x 18 mm Walford frontier stent was deployed in the mid circumflex artery at 18 jamar reducing the severe stenosis to 0%. KORI-3 flow was present before and after the procedure. 800 mcg of intracoronary artery nitroglycerin was administered after the stent procedure. After achieving excellent angiograph results the apparatus was removed the sheath was removed and hemostasis was achieved using TR banding patient was transferred to the postop putting in stable condition ANGIOGRAPHIC RESULTS The left main artery Normal The left anterior descending artery Has proximal and mid vessel 30% concentric stenoses The circumflex artery Massively large and dominant with mid vessel hazy 70% concentric stenosis The right coronary artery Vestigial normal The HERNANDEZ ventriculogram reveals Normal 65% The left ventricular end-diastolic pressure 10 to 15 mmHg IMPRESSION Mild to moderate proximal and mid LAD disease Severe disease in the mid dominant circumflex artery which correlated to the abnormal Myoview with successful stenting reducing lesion to 0% with 1 drug-eluting stent Normal ejection fraction Normal LVEDP PLAN 1. Effient and aspirin 2. Risk factor modification 3. Cardiac rehabilitation 4. Avoidance of tobacco products 5. Control of hypertension 6. DL less than 55 to be 2 that high intensity statin Electronically signed by : Marlo Cornejo MD 09/28/2023 13:52:34
[2023-09-28 08:23] LABS: Basophils # 0.1 K/mm3 (0-0.2); Basophils % 0.7 % (0.1-2.0); Eosinophils # 0.6 K/mm3 (0.0-0.4); Eosinophils % 5.4 % (0.1-12.0); Hematocrit 45.2 % (42.0-52.0); Hemoglobin 14.1 g/dL (14.1-18.0); Lymphocytes # 2.9 K/mm3 (0.7-4.5); Lymphocytes % 26.8 % (10-50); Mean Corpuscular HGB Conc 31.2 g/dL (31.8-35.4); Mean Corpuscular Hemoglobin 29.6 pg (27.0-31.2); Monocytes # 0.8 K/mm3 (0.1-1.0); Monocytes % 7.1 % (1.7-9.3); Neutrophils # 6.5 K/mm3 (1.8-7.8); Neutrophils % 59.9 % (37.0-80.0); Platelet Count 289 K/mm3 (142-424); Red Blood Count 4.76 M/mm3 (4.60-6.20); Red Cell Distribution Width 13.6 % (11.5-17.5); White Blood Count 10.8 K/mm3 (4.8-10.8)
[2023-09-28 08:48] LABS: Chloride 107 mmol/L (98-107); Sodium 141 mmol/L (136-145)
[2023-09-28 08:51] LABS: Blood Urea Nitrogen 13 mg/dl (9-20); Carbon Dioxide 27 mmol/L (22.0-30.0); Creatinine Clearance Estimated 158 mL/min (50-200); Estimated Glomerular Filt Rate 90 ml/min (>60); GFR (African American) 109 ML/MIN (>60)
[2023-09-28 08:52] LABS: Calcium 8.6 mg/dl (8.4-10.2); Glucose 108 mg/dl (74-100)
[2023-09-28] MEDS: diphenhydrAMINE 50MG/ML VIAL 50 MG IV (09:52)
[2023-09-28] MEDS: VERAPAMIL 2.5MG/ML 2ML VIAL 2.5 MG IV (09:52)
[2023-09-28] MEDS: LIDOCAINE 1% 10ML MDV 20 ML IJ (09:52)
[2023-09-28] MEDS: HEPARIN 1,000 UNITS/ML 10ML VIAL (CATH LAB) 10000 UNIT IV ×2 (09:52→10:18)
[2023-09-28] MEDS: HEPARIN 1,000 UNITS/500ML NS (CATH LAB) 3000 UNIT IV (09:53)
[2023-09-28] MEDS: 0.9 % SODIUM CHLORIDE 500 ML 25 ML IV (09:53)
[2023-09-28] MEDS: MIDAZOLAM HCL 1MG/1ML 5ML VIAL 1 MG IV (10:23)
[2023-09-28] MEDS: FENTANYL 100MCG/2ML VIAL 50 MCG IV (10:23)
[2023-09-28] MEDS: HYDRALAZINE 20MG/ML VIAL 20 MG IV (10:29)
[2023-09-28] MEDS: LABETALOL 20MG/4ML SYRINGE 20 MG IV (10:29)
[2023-09-28] MEDS: HYDROMORPHONE 2MG/ML SYRINGE 2 MG IV (10:31)
[2023-09-28] MEDS: PRASUGREL 10MG TAB 60 MG PO (10:40)
[2023-09-28] MEDS: IOPAMIDOL-370 (76%);100ML BOTTLE 105 ML IV (11:34)
[2023-09-28 11:35] LABS: CATHL Activated Clotting Time 296 SEC (74-125)
== END 2023-09-28 13:51 | disposition home or self-care (01) ==
PROVIDERS: PCP Family Medicine; Visit Provider Internal Medicine
DX: I47.10 Supraventricular tachycardia, unspecified (principal); I25.118 Atherosclerotic heart disease of native coronary artery with other forms of angina pectoris; R94.39 Abnormal result of other cardiovascular function study; Z79.899 Other long term (current) drug therapy; R00.2 Palpitations
CPT/HCPCS: 80048; 85025; 85347; 92928; 93458; 99152; 99153; C1725; C1760; C1769; C1874; C9600; J1170; J1200; J1644; J2250; J3010; Q9967

== ENCOUNTER 2023-10-04 07:54 | Emergency (ER) | payer OTHER, SELFPAY ==
[2023-10-04] VITALS (28 sets, daily range): BP systolic 97–139; BP diastolic 6–122; PULSE 65–164; RESP 12–24; TEMP 36.8–36.9; O2SAT 94–99; BMI 36.0
--- NOTE | 2023-10-04 07:54 | PC.NURSE ---
DR CHAUDHARY AT BEDSIDE
--- NOTE | 2023-10-04 07:57 | ECG_ITS ---
APPROVED REPORT Exam: Resting ECG HR:166 bpm ECG Measurements Heart Rate 166 AXES QRSd 106 QRS -12 QT 257 T 34 QTc 348 Conclusion ATRIAL FLUTTER/TACHYCARDIA WITH RAPID VENTRICULAR RESPONSE NONSPECIFIC ST ELEVATION [0.05+ mV ST ELEVATION] CRITICAL TEST RESULT Electronically signed by : Diomedes Delacruz, 10/04/2023 16:14:04
[2023-10-04] MEDS: dilTIAZem 25MG/5ML VIAL 25 MG IV (08:02)
--- NOTE | 2023-10-04 08:15 | HMH.EDGENADL ---
Discharge Plan Disposition Patient Disposition: Home, Self-Care Prescriptions Prescriptions: No Action multivitamin Tablet 1 tab PO DAILY buprenorphine-naloxone 8-2 mg tablet, sublingual 2 tab SL DAILY nitroglycerin 0.4 mg tablet, sublingual 0.4 mg sublingual Q5M PRN (Reason: chest pain) Qty: 20 0RF Rx Instructions: do not exceed 3 doses per episode ondansetron HCl 4 mg tablet 4 mg PO DAILY PRN (Reason: nausea and vomiting) 30 Days Qty: 30 0RF omeprazole 20 mg capsule,delayed release(DR/EC) 20 mg PO DAILY 30 Days Qty: 30 2RF lactulose 10 gram/15 mL solution 10 ml PO TID PRN (Reason: constipation) Qty: 946 3RF lisinopril 20 mg tablet 20 mg PO DAILY 30 Days Qty: 30 2RF doxepin 50 mg capsule 100 mg PO HS 30 Days Qty: 60 0RF mirtazapine 15 mg tablet 15 mg PO DAILY 30 Days Qty: 30 0RF metoprolol succinate 100 mg tablet extended release 24 hr 100 mg PO BID Qty: 60 2RF clopidogrel 300 mg tablet 300 mg PO ONCE Qty: 1 0RF Rx Instructions: Take on 10/05/2023 to load Xarelto 20 mg tablet 20 mg PO DAILY Qty: 30 2RF Rx Instructions: must administer with evening meal clopidogrel [Plavix] 75 mg tablet 75 mg PO DAILY Qty: 30 2RF Rx Instructions: Start on 10/06/2023 atorvastatin [Lipitor] 40 mg Tablet 40 mg PO DAILY 30 Days Qty: 30 3RF Referrals Follow up/Referrals: Nathanael Rowland MD [Primary Care Provider] - See instructions Activity Restrictions/Add. Instructions Additional Instructions/Restrictions: Per Cardiology: TONIGHT: you need to take 50mg of your Metoprolol. TOMORROW: Take 300mg of Plavix in the morning. Take 20mg of Xarelto in the morning. Take 100mg of Metoprolol in the morning and at night. STOP your aspirin. EVERY DAY AFTER: Take 75mg of Plavix. Take 20mg of Xarelto. 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 Please go to the cardiology office tomorrow for your appointment. Clinical Impressions Clinical Impression: Atrial flutter Print Language Print Language: Monegasque Discharge ED Provider: Diomedes Delacruz Adult HPI General Chief complaint: Chest Pain Stated complaint: chest pain Time Seen by Provider: 10/04/23 07:57 History of Present Illness HPI narrative: Patient is a 48-year-old male with history of hypertension, hyperlipidemia, coronary artery disease s/p PCI on 09/28/2023. On 09/28/2023, he had drug-eluting stent placed in the dominant circumflex artery. Started on Effient and aspirin. Patient reports some intermittent chest pain and shortness of breath since then that is worse on exertion. He reports that he has been feeling intermittent palpitations throughout the week since his discharge, but is usually able to calm himself down except this morning when he woke up. This morning, he woke up with anterior chest pain that does not radiate. He was found to have heart rate in the 160s there. Given adenosine x1 in route with minimal relief. Patient received a total of 4 sublingual nitroglycerin this morning which provided some relief, however chest pain is waxing and waning. He reports good oral intake and denies any recent cyclic symptoms vomiting or diarrhea. Related Data Home Medications ?Medication ?Instructions ?Recorded ?Confirmed buprenorphine 8 mg-naloxone 2 mg 2 tab sublingual DAILY 09/15/21 09/28/23 sublingual tablet multivitamin 1 tab PO DAILY 09/15/21 09/28/23 Previous Rx's ?Medication ?Instructions ?Recorded ondansetron HCl 4 mg tablet 4 mg PO DAILY PRN nausea and 12/24/22 vomiting 30 days #30 tabs omeprazole 20 mg capsule,delayed 20 mg PO DAILY acid reflux 30 days 05/23/23 release #30 caps lactulose 10 gram/15 mL oral 10 ml PO TID PRN constipation #946 06/28/23 solution mL lisinopril 20 mg tablet 20 mg PO DAILY HTN 30 days #30 tabs 08/22/23 nitroglycerin 0.4 mg sublingual 0.4 mg sublingual Q5M PRN chest 09/06/23 tablet pain #20 tabs doxepin 50 mg capsule 100 mg (2 x 50 mg) PO HS anxiety 09/20/23 30 days #60 caps mirtazapine 15 mg tablet 15 mg PO DAILY sleep 30 days #30 09/20/23 tabs atorvastatin 40 mg tablet (Lipitor) 40 mg PO DAILY 30 days #30 tabs 08/21/24 clopidogrel 300 mg tablet 300 mg PO ONCE #1 tab 10/04/23 clopidogrel 75 mg tablet (Plavix) 75 mg PO DAILY #30 tabs 10/04/23 metoprolol succinate 100 mg 100 mg PO BID #60 tabs 10/04/23 tablet,extended release 24 hr rivaroxaban 20 mg tablet (Xarelto) 20 mg PO DAILY #30 tabs 10/04/23 Allergies Allergy/AdvReac Type Severity Reaction Status Date / Time No Known Allergies Allergy Verified 09/06/23 14:13 [facility] Disclaimer: The information contained in this section may have been updated after the patient was seen, as this information can be updated by other users. Medical History Palpitations Fatigue Dyspnea Hepatitis A Chronic liver disease Chronic kidney disease Hepatic encephalopathy Hepatitis B Hypertension Surgical History History of arthroscopic knee surgery Family History Father Heart attack Hypertension Grandfather Heart attack Hypertension Mother Heart attack Hypertension Social History Smoking Status: Never smoker second hand exposure: Yes alcohol intake: former substance use type: former substance user current occupational status: unemployed Travel in the last 8 weeks: None household members: significant other housing: house ROS Obtained: Yes All systems reviewed & no additional complaints except as documented Physical Exam General General appearance: alert, anxious and in distress Head Head exam: atraumatic Eye Eye exam: Present normal appearance and EOMI ENT ENT exam: Present normal exam Neck Neck exam: Present normal inspection and full ROM Chest Chest inspection: Present normal inspection, symmetric chest wall rise and tenderness (mild anterior) Respiratory Respiratory exam: Present normal lung sounds bilaterally; Absent wheezes or stridor Cardiovascular Cardiovascular exam: Present tachycardia and irregular rhythm Abdominal Exam Abdominal exam: Present soft; Absent distention or tenderness Extremities Exam Extremities exam: Present normal inspection and full ROM; Absent edema Neurological Exam Neurological exam: Present alert and oriented X3 Medical Decision Making Roby Inquiry Pt receiving controlled substance: No Vital Signs: 10/04/23 07:54 10/04/23 08:01 10/04/23 08:05 Temperature 98.4 F Temperature Source Oral Pulse Rate 156 H 163 H Pulse Rate [Left Radial] 164 H Respiratory Rate 17 17 20 Blood Pressure 122/72 139/122 H Blood Pressure [Right Arm] 122/54 L Blood Pressure Mean [Right Arm] 76 Blood Pressure Source Blood Pressure Position 02 Sat by Pulse Oximetry 96 97 98 Oxygen Delivery Method Room Air Room Air Room Air 10/04/23 08:11 10/04/23 08:20 10/04/23 08:24 Temperature Temperature Source Pulse Rate 164 H 164 H 152 H Pulse Rate [Left Radial] Respiratory Rate 15 15 Blood Pressure 130/111 H 109/94 L Blood Pressure [Right Arm] Blood Pressure Mean [Right Arm] Blood Pressure Source Blood Pressure Position 02 Sat by Pulse Oximetry 98 98 Oxygen Delivery Method Room Air Room Air 10/04/23 08:33 10/04/23 08:36 10/04/23 08:46 Temperature Temperature Source Pulse Rate 154 H 75 81 Pulse Rate [Left Radial] Respiratory Rate 12 15 17 Blood Pressure 109/79 L 106/77 L 97/68 L Blood Pressure [Right Arm] Blood Pressure Mean [Right Arm] Blood Pressure Source Blood Pressure Position 02 Sat by Pulse Oximetry 96 98 95 Oxygen Delivery Method Room Air Room Air Room Air 10/04/23 08:50 10/04/23 08:56 10/04/23 09:00 Temperature Temperature Source Pulse Rate 75 65 68 Pulse Rate [Left Radial] Respiratory Rate 15 15 16 Blood Pressure 107/72 L 97/70 L 105/74 L Blood Pressure [Right Arm] Blood Pressure Mean [Right Arm] Blood Pressure Source Blood Pressure Position 02 Sat by Pulse Oximetry 95 95 97 Oxygen Delivery Method Room Air Room Air Room Air 10/04/23 09:06 10/04/23 09:10 10/04/23 09:22 Temperature Temperature Source Pulse Rate 70 67 78 Pulse Rate [Left Radial] Respiratory Rate 20 13 17 Blood Pressure 114/63 120/79 123/85 Blood Pressure [Right Arm] Blood Pressure Mean [Right Arm] Blood Pressure Source Blood Pressure Position 02 Sat by Pulse Oximetry 98 97 99 Oxygen Delivery Method Room Air Room Air Room Air 10/04/23 09:27 10/04/23 09:30 10/04/23 09:36 Temperature Temperature Source Pulse Rate 72 71 71 Pulse Rate [Left Radial] Respiratory Rate 15 17 22 Blood Pressure 105/73 L 123/65 121/72 Blood Pressure [Right Arm] Blood Pressure Mean [Right Arm] Blood Pressure Source Blood Pressure Position 02 Sat by Pulse Oximetry 94 L 94 L 98 Oxygen Delivery Method Room Air Room Air Room Air 10/04/23 09:41 10/04/23 09:46 10/04/23 09:51 Temperature Temperature Source Pulse Rate 69 71 69 Pulse Rate [Left Radial] Respiratory Rate 14 14 18 Blood Pressure 113/69 112/6 L 103/70 L Blood Pressure [Right Arm] Blood Pressure Mean [Right Arm] Blood Pressure Source Blood Pressure Position 02 Sat by Pulse Oximetry 97 94 L 96 Oxygen Delivery Method Room Air 10/04/23 09:56 10/04/23 10:01 10/04/23 10:07 Temperature Temperature Source Pulse Rate 71 69 75 Pulse Rate [Left Radial] Respiratory Rate 24 15 24 Blood Pressure 120/84 103/68 L 115/42 L Blood Pressure [Right Arm] Blood Pressure Mean [Right Arm] Blood Pressure Source Blood Pressure Position 02 Sat by Pulse Oximetry 95 96 95 Oxygen Delivery Method 10/04/23 10:10 10/04/23 10:16 10/04/23 10:21 Temperature Temperature Source Pulse Rate 71 72 73 Pulse Rate [Left Radial] Respiratory Rate 22 19 22 Blood Pressure 127/79 124/76 129/74 Blood Pressure [Right Arm] Blood Pressure Mean [Right Arm] Blood Pressure Source Blood Pressure Position 02 Sat by Pulse Oximetry 95 97 96 Oxygen Delivery Method 10/04/23 10:45 Temperature 98.3 F Temperature Source Oral Pulse Rate 72 Pulse Rate [Left Radial] Respiratory Rate 16 Blood Pressure 123/78 Blood Pressure [Right Arm] Blood Pressure Mean [Right Arm] Blood Pressure Source Automatic Cuff Blood Pressure Position Sitting 02 Sat by Pulse Oximetry Oxygen Delivery Method Room Air Lab Data Lab Results 10/04/23 08:00: WBC 9.0, RBC 4.61, Hgb 14.1, Hct 43.0, MCV 93.2, MCH 30.6, MCHC 32.8, RDW 13.4, Plt Count 247, MPV 9.6, Neut % (Auto) 63.0, Lymph % (Auto) 21.6, [place] % (Auto) 13.1 H, Eos % (Auto) 1.8, Baso % (Auto) 0.5, Neut # (Auto) 5.7, Lymph # (Auto) 2.0, [place] # (Auto) 1.2 H, Eos # (Auto) 0.2, Baso # (Auto) 0.1, PT 11.1, INR 0.99, Sodium 138, Potassium 3.8, Chloride 106, Carbon Dioxide 27, Anion Gap 8.8, BUN 15, Creatinine 1.00, Estimated Creat Clear 133, Estimated GFR 80, Est GFR ( Amer) 97, Glucose 126 H, Calcium 8.3 L, Magnesium 1.8, Total Bilirubin 0.4, AST 62 H, ALT 79 H, Alkaline Phosphatase 83, Troponin I < 0.01, Total Protein 7.5, Albumin 4.2, Globulin 3.3 H, Albumin/Globulin Ratio 1.3 10/04/23 08:00 10/04/23 08:00 Orders (Tests/Meds): ED MEDICATIONS Discontinued Medications Generic Name Dose Route Start Last Admin Trade Name Freq PRN Reason Stop Dose Admin Diltiazem HCl 25 mg 10/04/23 08:09 10/04/23 08:02 Diltiazem 25mg/5ml Vial IV 10/04/23 08:10 25 mg ONCE ONE Administration Diltiazem HCl 35 mg 10/04/23 08:30 10/04/23 08:32 Diltiazem 25mg/5ml Vial IV 10/04/23 08:31 35 mg ONCE ONE Administration Lactated Ringer's 1,000 mls @ 999 mls/hr 10/04/23 08:09 10/04/23 08:19 Lactated Ringer's 1000 Ml Bag IV 10/04/23 09:09 999 mls/hr .Q1H1M ONE Administration Metoprolol Tartrate 5 mg 10/04/23 08:09 10/04/23 08:16 Metoprolol Tartrate 5mg/5ml Vial IV 10/04/23 08:10 5 mg ONCE ONE Administration ORDERS Category Date Time Status Consult to Cardiology [CONS] Routine Cons 10/04/23 09:02 Active POCUS Point of Care (ER Only) Stat Exams 10/04/23 08:18 Completed XR chest 2V Stat Exams 10/04/23 08:16 Completed Complete Blood Count Auto Diff Stat Lab 10/04/23 08:00 Completed Comprehensive Metabolic Panel Stat Lab 10/04/23 08:00 Completed Magnesium Stat Lab 10/04/23 08:00 Completed Prothrombin Time INR Stat Lab 10/04/23 08:00 Completed Troponin I Stat Lab 10/04/23 08:00 Completed ECG holter initial pfn Routine Y 10/04/23 Completed Medical Decision Narrative: In summary, this 48-year-old male presents to the emergency department today with chest pain, palpitations. On initial evaluation patient is critically ill, he is in acute distress and appears uncomfortable and anxious. He is tachycardic at 160, blood pressure is hypertensive, satting well on room air.. Differential diagnosis includes but is not limited to atrial flutter, supraventricular tachycardia, A-fib RVR, electrolyte disturbance, ACS, IL. Based on these concerns, I ordered CBC CMP magnesium troponins chest x-ray. I reviewed prior records including as above in the HPI, stent placed on 10/01/2023. ECG personally interpreted demonstrates initial EKG demonstrates what appears to be atrial flutter given the ventricular rate being 160 and 2-1. No significant ST segment elevation. After interventions, repeat EKG demonstrates A-fib rate controlled with no acute ischemic ST changes.. Patient received 25 mg of diltiazem IV push. Patient endorsed that he did not take his metoprolol this morning so 5 mg push of metoprolol was administered without relief. 15 minutes later, patient received diltiazem 35 mg which controlled his rate as evidenced in the repeat EKG. about 15 to 20 minutes after this, noted that patient on telemetry converted to normal sinus rhythm. Repeat EKG demonstrates normal sinus rhythm at a rate of 70 QTc 399, no acute ischemic ST changes. [id number]-[id number] ultrasound was performed which demonstrated a hyperdynamic heart with good LVEF without evidence of pericardial effusion. IVC was examined which demonstrated a more than 50% collapsible IVC, coupled with no lower extremity edema, felt reasonable to fluid resuscitate with 1 L LR. For treatment. Labs personally reviewed demonstrate no evidence of anemia, no significant electrolyte disturbance. Mild transaminitis. Negative first troponin.. XR personally interpreted demonstrates trachea midline, no evidence of pneumothorax, no pleural effusions, no focal consolidations. Heart is appropriately sized.. I had an interactive discussion with cardiology who evaluated the patient and given that he is in normal sinus rhythm and without chest pain on reassessment, felt it reasonable to start him on Xarelto, they will also stop his Effient and aspirin and start Plavix. Following up in clinic tomorrow morning. Patient is amenable to plan and all questions answered on reassessment patient is comfortable in no acute distress in sinus rhythm and normotensive.. At this time it was felt that the patient was safe to be discharged home. The patient was in agreement with this plan. The patient was given strict return precautions prior to being discharged from the emergency department. Critical Care Critical Care Time Critical Care Time: Yes Attestation: On 10/04/23, the high probability of a clinically significant, sudden or life threatening deterioration of the following system(s) required my full and direct attention, intervention and personal management. The time I documented below is in addition to time spent performing reported procedures but includes the following listed in this critical care notation. Total Time Total Critical Care Time: 35
[2023-10-04] MEDS: METOPROLOL TARTRATE 5MG/5ML VIAL 5 MG IV (08:16)
--- NOTE | 2023-10-04 08:16 | XR_ITS ---
FINAL REPORT TECHNIQUE: Chest PA & Lateral CLINICAL HISTORY: arrhythmia FINDINGS: 2 views of the chest were performed. The heart size is normal. The mediastinum is within normal limits. There is no acute cardiopulmonary process. There are no pleural effusions. There is no pneumothorax. The bony thorax appears intact. IMPRESSION: No acute cardiopulmonary process. Reviewed, Interpreted and Dictated by Zach Barker MD Transcribed by Morelia Pimentel Authenticated and [facility]
[2023-10-04] MEDS: LACTATED RINGERS 1000ML 1,000 ML 999 ML IV (08:19)
[2023-10-04] MEDS: dilTIAZem 25MG/5ML VIAL 35 MG IV (08:32)
[2023-10-04 08:38] LABS: Basophils # 0.1 K/mm3 (0-0.2); Basophils % 0.5 % (0.1-2.0); Eosinophils # 0.2 K/mm3 (0.0-0.4); Eosinophils % 1.8 % (0.1-12.0); Hemoglobin 14.1 g/dL (14.1-18.0); Lymphocytes % 21.6 % (10-50); Mean Corpuscular HGB Conc 32.8 g/dL (31.8-35.4); Mean Corpuscular Hemoglobin 30.6 pg (27.0-31.2); Mean Corpuscular Volume 93.2 fl (80-94); Mean Platelet Volume 9.6 fl (7.4-10.4); Monocytes # 1.2 K/mm3 (0.1-1.0); Monocytes % 13.1 % (1.7-9.3); Neutrophils # 5.7 K/mm3 (1.8-7.8); Platelet Count 247 K/mm3 (142-424); Red Blood Count 4.61 M/mm3 (4.60-6.20); Red Cell Distribution Width 13.4 % (11.5-17.5)
--- NOTE | 2023-10-04 08:38 | ECG_ITS ---
APPROVED REPORT Exam: Resting ECG HR:87 bpm ECG Measurements Heart Rate 87 AXES QRSd 84 QRS 49 QT 340 T 49 QTc 385 Conclusion ATRIAL FIBRILLATION ABNORMAL RHYTHM ECG Electronically signed by : Diomedes Delacruz, 10/04/2023 16:13:41
[2023-10-04 08:40] LABS: Albumin Level 4.2 g/dl (3.5-5.0); Chloride 106 mmol/L (98-107)
[2023-10-04 08:41] LABS: Potassium 3.8 mmoL/L (3.5-5.1); Sodium 138 mmol/L (136-145)
[2023-10-04 08:43] LABS: Alanine Aminotransferase 79 U/L (12-78); Aspartate Amino Transferase 62 U/L (17-59); Blood Urea Nitrogen 15 mg/dl (9-20); Creatinine Clearance Estimated 133 mL/min (50-200); Estimated Glomerular Filt Rate 80 ml/min (>60); GFR (African American) 97 ML/MIN (>60); INR 0.99 (0.9-1.1); Prothrombin Time 11.1 seconds (10.1-12.5)
[2023-10-04 08:44] LABS: Albumin/Globulin Ratio 1.3 (1.1-1.8); Alkaline Phosphatase 83 U/L (38-126); Anion Gap 8.8 mEq/L (5-15); Bilirubin,Total 0.4 mg/dl (0.2-1.3); Calcium 8.3 mg/dl (8.4-10.2); Carbon Dioxide 27 mmol/L (22.0-30.0); Globulin 3.3 g/dL (1.3-3.2); Glucose 126 mg/dl (74-100); Magnesium 1.8 mg/dl (1.6-2.3); Total Protein,Serum 7.5 g/dl (6.3-8.2)
[2023-10-04 08:58] LABS: Troponin I < 0.01 ng/ml (0.00-0.034)
--- NOTE | 2023-10-04 09:03 | PC.NURSE ---
CARDIOLOGY NOTIFIED OF CONSULT
--- NOTE | 2023-10-04 09:05 | ECG_ITS ---
APPROVED REPORT Exam: Resting ECG HR:70 bpm ECG Measurements Heart Rate 70 AXES SD 201 P 62 QRSd 103 QRS 38 QT 378 T 42 QTc 399 Conclusion SINUS RHYTHM NORMAL ECG Electronically signed by : Diomedes Delacruz, 10/04/2023 16:13:26
--- NOTE | 2023-10-04 09:20 | PC.NURSE ---
CARDIOLOGY AT BEDSIDE
--- NOTE | 2023-10-04 09:51 | EXP.CARD.CON ---
History of Present Illness History of Present Illness Consult date: 10/04/23 Requesting physician: Diomedes Delacruz Consult reason: atrial fibrillation Chief complaint: Palpitations and chest pain History of present illness: This is a 48-year-old white male with past medical history of hypertension, coronary artery disease with recent stenting to circumflex on 09/28/2023, and paroxysmal atrial fibrillation not on OAC who presented to emergency department with complaints of palpitations and chest pressure since 6 AM this morning. Patient reports he was just sitting in a chair when symptoms developed. Upon arrival to emergency department patient was noted to be in A-fib RVR at a rate of 160. Patient was given 2 IV boluses of diltiazem and 5 mg of metoprolol and has converted to normal sinus rhythm with resolution of symptoms. Patient had an echocardiogram 02/13/2023 which showed normal biventricular function and mild PI. Patient previously wore a 2-week event monitor which showed normal sinus rhythm and brief episodes of SVT. Chest x-ray reviewed and shows no acute cardiopulmonary process however official read is pending. Labs are as follow: WBC 9, hemoglobin 14.1, sodium 138, potassium 3.8, creatinine 1, AST 62, ALT 79, troponin negative. A repeat EKG was obtained which shows normal sinus rhythm at a rate of 70. Patient also reports increase in blurry vision x a few months with intermittent tingling to side of head. Denies current neurological symptoms and no change to vision today. [facility] Disclaimer: The information contained in this section may have been updated after the patient was seen, as this information can be updated by other users. Medical History Palpitations Fatigue Dyspnea Hepatitis A Chronic liver disease Chronic kidney disease Hepatic encephalopathy Hepatitis B Hypertension Surgical History History of arthroscopic knee surgery Family History Father Heart attack Hypertension Grandfather Heart attack Hypertension Mother Heart attack Hypertension Social History Smoking Status: Never smoker second hand exposure: Yes alcohol intake: former substance use type: former substance user current occupational status: unemployed Travel in the last 8 weeks: None household members: significant other housing: house Review of Systems *Cardiovascular Cardiovascular: Reports chest pain Comments: Palpitations Exam Data for Last 24 hours Vital signs and Labs for Last 24 Hours: Temp Pulse Resp BP Pulse Ox O2 Del Method 98.4 F 69 14 113/69 97 Room Air 10/04/23 07:54 10/04/23 09:41 10/04/23 09:41 10/04/23 09:41 10/04/23 09:41 10/04/23 09:41 Laboratory Results - last 24 hr 10/04/23 08:00: WBC 9.0, RBC 4.61, Hgb 14.1, Hct 43.0, MCV 93.2, MCH 30.6, MCHC 32.8, RDW 13.4, Plt Count 247, MPV 9.6, Neut % (Auto) 63.0, Lymph % (Auto) 21.6, [place] % (Auto) 13.1 H, Eos % (Auto) 1.8, Baso % (Auto) 0.5, Neut # (Auto) 5.7, Lymph # (Auto) 2.0, [place] # (Auto) 1.2 H, Eos # (Auto) 0.2, Baso # (Auto) 0.1, PT 11.1, INR 0.99, Sodium 138, Potassium 3.8, Chloride 106, Carbon Dioxide 27, Anion Gap 8.8, BUN 15, Creatinine 1.00, Estimated Creat Clear 133, Estimated GFR 80, Est GFR ( Amer) 97, Glucose 126 H, Calcium 8.3 L, Magnesium 1.8, Total Bilirubin 0.4, AST 62 H, ALT 79 H, Alkaline Phosphatase 83, Troponin I < 0.01, Total Protein 7.5, Albumin 4.2, Globulin 3.3 H, Albumin/Globulin Ratio 1.3 I & O for Last 24 hours: Intake & Output 10/01/23 10/02/23 10/03/23 10/04/23 23:59 23:59 23:59 23:59 Weight 230 lb Constitutional Constitutional: no acute distress *Routine Respiratory Exam Respiratory: Present CTA bilaterally and symmetric chest movement *Routine Cardiovascular Exam Cardiovascular: Present RRR, Normal S1 and Normal S2 *Routine Abdominal Exam Abdominal: Present soft and normoactive bowel sounds; Absent tenderness *Routine Extremities Exam Extremities: Present full ROM and normal capillary refill; Absent edema *Routine Skin Exam Skin: Present intact, dry and warm Detailed Neck Exam: Thyroids Thyroid: Absent bruit Meds Home Medications and Allergies Home Medications ?Medication ?Instructions ?Recorded ?Confirmed ?Type buprenorphine 8 mg-naloxone 2 mg 2 tab sublingual DAILY 09/15/21 09/28/23 History sublingual tablet multivitamin 1 tab PO DAILY 09/15/21 09/28/23 History ondansetron HCl 4 mg tablet 4 mg PO DAILY PRN nausea and 12/24/22 09/28/23 Rx vomiting 30 days #30 tabs omeprazole 20 mg capsule,delayed 20 mg PO DAILY acid reflux 30 days 05/23/23 09/28/23 Rx release #30 caps lactulose 10 gram/15 mL oral 10 ml PO TID PRN constipation #946 06/28/23 09/28/23 Rx solution mL lisinopril 20 mg tablet 20 mg PO DAILY HTN 30 days #30 tabs 08/22/23 09/28/23 Rx nitroglycerin 0.4 mg sublingual 0.4 mg sublingual Q5M PRN chest 09/06/23 09/28/23 Rx tablet pain #20 tabs doxepin 50 mg capsule 100 mg (2 x 50 mg) PO HS anxiety 09/20/23 09/28/23 Rx 30 days #60 caps mirtazapine 15 mg tablet 15 mg PO DAILY sleep 30 days #30 09/20/23 09/28/23 Rx tabs atorvastatin 40 mg tablet (Lipitor) 40 mg PO DAILY 30 days #30 tabs 09/28/23 Rx clopidogrel 300 mg tablet 300 mg PO ONCE #1 tab 10/04/23 Rx clopidogrel 75 mg tablet (Plavix) 75 mg PO DAILY #30 tabs 10/04/23 Rx metoprolol succinate 100 mg 100 mg PO BID #60 tabs 10/04/23 Rx tablet,extended release 24 hr rivaroxaban 20 mg tablet (Xarelto) 20 mg PO DAILY #30 tabs 10/04/23 Rx New Prescriptions to Start Prescriptions: Allergies Allergy/AdvReac Type Severity Reaction Status Date / Time No Known Allergies Allergy Verified 09/06/23 14:13 Assessment and Plan *Assessment and plan (1) Atrial flutter with rapid ventricular response: Status: Acute Category: Medical Code(s): I48.92 - Unspecified atrial flutter (2) Supraventricular tachycardia: Status: Acute Category: Medical Code(s): I47.10 - Supraventricular tachycardia, unspecified (3) Coronary artery disease: Status: Acute Category: Medical Code(s): I25.10 - Atherosclerotic heart disease of [place] coronary artery without angina pectoris Plan Coronary artery disease Paroxysmal atrial fibrillation ChadsVasc score 2 (HTN and CAD) Brief episodes of SVT Echo 08/2023 shows normal biventricular function with mild PI Left heart cath 09/2020 shows mild to moderate proximal LAD's disease. Patient received 1 JO-ANN to circumflex Has converted to normal sinus rhythm at a rate of 70 Increase metoprolol to 100 mg p.o. twice daily Stop aspirin and Effient Tomorrow load with Plavix 300 mg x 1 and start Xarelto 20 mg daily Starting continue Plavix 75 mg daily and continue Xarelto 20 mg daily Continue high-dose statin CV summary 10/04/2023: Patient is CV stable for discharge home. Please discharge patient home in a 48-hour Holter monitor with above medication changes. Patient has cardiology office follow-up tomorrow, patient encouraged to keep follow-up. Patient will need outpatient neurology and ophthalmology follow up.
--- NOTE | 2023-10-04 10:06 | PC.NURSE ---
DR CHAUDHARY AT BEDSIDE TO UPDATE PT AND FAMILY
--- NOTE | 2023-10-04 10:26 | PC.NURSE ---
HOLTER MONITOR APPLIED BY RESPIRATORY
--- NOTE | 2023-10-04 10:49 | PC.NURSE ---
floridalma brown rounding on pt
== END 2023-10-04 10:50 | disposition home or self-care (01) ==
PROVIDERS: Emergency Provider Emergency Medicine; PCP Family Medicine
DX: I48.92 Unspecified atrial flutter (principal); R07.9 Chest pain, unspecified; R06.02 Shortness of breath; I10 Essential (primary) hypertension; R74.01 Elevation of levels of liver transaminase levels; E78.5 Hyperlipidemia, unspecified; Z86.79 Personal history of other diseases of the circulatory system; Z95.5 Presence of coronary angioplasty implant and graft
CPT/HCPCS: 71046; 80053; 83735; 84484; 85025; 85610; 93005; 93225; 93227; 96361; 96374; 96375; 99285; J7120

== ENCOUNTER 2023-11-22 15:33 | Outpatient (CLI) | payer OTHER, SELFPAY ==
[2023-11-22 16:15] LABS: Basophils # 0.1 K/mm3 (0-0.2); Basophils % 0.5 % (0.1-2.0); Eosinophils # 0.5 K/mm3 (0.0-0.4); Eosinophils % 5.7 % (0.1-12.0); Hemoglobin 12.3 g/dL (14.1-18.0); Lymphocytes # 2.3 K/mm3 (0.7-4.5); Lymphocytes % 25.9 % (10-50); Mean Corpuscular HGB Conc 34.2 g/dL (31.8-35.4); Mean Corpuscular Hemoglobin 30.7 pg (27.0-31.2); Mean Corpuscular Volume 89.7 fl (80-94); Mean Platelet Volume 9.2 fl (7.4-10.4); Monocytes # 0.6 K/mm3 (0.1-1.0); Monocytes % 7.2 % (1.7-9.3); Neutrophils # 5.4 K/mm3 (1.8-7.8); Neutrophils % 60.6 % (37.0-80.0); Platelet Count 230 K/mm3 (142-424); Red Blood Count 4.01 M/mm3 (4.60-6.20); Red Cell Distribution Width 13.7 % (11.5-17.5); White Blood Count 8.8 K/mm3 (4.8-10.8)
[2023-11-22 17:17] LABS: Chloride 106 mmol/L (98-107)
[2023-11-22 17:18] LABS: Potassium 4.4 mmoL/L (3.5-5.1); Sodium 140 mmol/L (136-145)
[2023-11-22 17:21] LABS: Anion Gap 11.4 mEq/L (5-15); Blood Urea Nitrogen 12 mg/dl (9-20); Carbon Dioxide 27 mmol/L (22.0-30.0); Estimated Glomerular Filt Rate 90 ml/min (>60); GFR (African American) 109 ML/MIN (>60); Glucose 72 mg/dl (74-100)
[2023-11-22 17:28] LABS: NT Pro Brain Natriuretic Pep. 407 pg/mL (0-125)
== END 2023-11-22 23:59 | disposition home or self-care (01) ==
LOC: LAB 15:33
PROVIDERS: PCP Family Medicine; Visit Provider Physician Assistant
DX: R06.09 Other forms of dyspnea (principal); R53.83 Other fatigue; R00.2 Palpitations; I47.10 Supraventricular tachycardia, unspecified; I25.118 Atherosclerotic heart disease of native coronary artery with other forms of angina pectoris; I48.0 Paroxysmal atrial fibrillation; I47.29 Other ventricular tachycardia; F41.9 Anxiety disorder, unspecified
CPT/HCPCS: 36415; 80048; 83880; 85025

== ENCOUNTER 2023-12-08 08:03 | Day surgery (SDC) | payer OTHER, SELFPAY ==
[2023-12-08] VITALS (12 sets, daily range): BP systolic 120–144; BP diastolic 68–96; PULSE 57–73; RESP 17–20; O2SAT 96–99; BMI 40.1
--- NOTE | 2023-12-08 07:06 | IR_ITS ---
APPROVED REPORT Patient Location: Outpatient Student Advisor: Gonzalo Vergara, RT (R) PROCEDURES Left heart catheterization Left ventriculogram Selective coronary angiogram INDICATION Known coronary artery disease, Progressive angina pectoris Informed consent was obtained prior to the procedure. COMPLICATIONS NONE Estimated Blood Loss: LESS THAN 10 ML TECHNIQUE One percent lidocaine used to anesthetize the right anterior aspect of the wrist. The right radial artery was accessed via the Seldinger technique. A 6 [place] sheath was placed in the right radial artery. 2.5 mg of Verapamil, 800 mcg of nitroglycerin, 1mg Lidocaine and 5000 U Heparin were given through the arterial sheath. The 6 [place] JL 3 guide catheter was used to perform left heart catheterization, left ventriculogram and selective coronary angiogram. At the end of the procedure the sheath was removed good hemostasis was achieved using Traclet band, patient was transferred to the postop holding area in stable condition. ANGIOGRAPHIC RESULTS The left main artery Normal The left anterior descending artery Large-caliber with mild proximal and mid vessel 10% luminal regularities The circumflex artery Large and dominant with diffuse 10% luminal regularities. There is a stent in the mid circumflex artery which is widely patent free of in-stent restenosis with excellent proximal distal transitioning The right coronary artery Vestigial normal The HERNANDEZ ventriculogram reveals Normal 65% The left ventricular end-diastolic pressure 10 mmHg IMPRESSION Widely patent stent in the mid dominant circumflex artery as described above Normal ejection fraction Normal LVEDP PLAN 1. Continue medical management with risk factor modification 2. Consider sleep study if not already obtained Electronically signed by : Marlo Cornejo MD 12/08/2023 10:21:50
[2023-12-08 08:44] LABS: Basophils # 0.1 K/mm3 (0-0.2); Basophils % 0.6 % (0.1-2.0); Eosinophils # 0.6 K/mm3 (0.0-0.4); Hematocrit 40.4 % (42.0-52.0); Hemoglobin 13.7 g/dL (14.1-18.0); Lymphocytes # 2.5 K/mm3 (0.7-4.5); Lymphocytes % 24.8 % (10-50); Mean Corpuscular Hemoglobin 30.6 pg (27.0-31.2); Monocytes # 0.8 K/mm3 (0.1-1.0); Monocytes % 7.5 % (1.7-9.3); Neutrophils # 6.3 K/mm3 (1.8-7.8); Neutrophils % 61.1 % (37.0-80.0); Platelet Count 220 K/mm3 (142-424); Red Blood Count 4.49 M/mm3 (4.60-6.20); Red Cell Distribution Width 13.4 % (11.5-17.5); White Blood Count 10.2 K/mm3 (4.8-10.8)
[2023-12-08 08:48] LABS: Chloride 107 mmol/L (98-107); Sodium 139 mmol/L (136-145)
[2023-12-08 08:49] LABS: Potassium 4.3 mmoL/L (3.5-5.1)
[2023-12-08 08:52] LABS: Anion Gap 14.3 mEq/L (5-15); Blood Urea Nitrogen 16 mg/dl (9-20); Calcium 8.5 mg/dl (8.4-10.2); Carbon Dioxide 22 mmol/L (22.0-30.0); Creatinine Clearance Estimated 185 mL/min (50-200); Estimated Glomerular Filt Rate 103 ml/min (>60); GFR (African American) 125 ML/MIN (>60); Glucose 104 mg/dl (74-100)
[2023-12-08] MEDS: HEPARIN 1,000 UNITS/ML 10ML VIAL (CATH LAB) 10000 UNIT IV (09:55)
[2023-12-08] MEDS: 0.9 % SODIUM CHLORIDE 500 ML 25 ML IV (09:56)
[2023-12-08] MEDS: NITROGLYCERIN 800MCG/8ML SYR (CATH LAB) 800 MCG IA (09:56)
[2023-12-08] MEDS: VERAPAMIL 2.5MG/ML 2ML VIAL 2.5 MG IV (09:56)
[2023-12-08] MEDS: LIDOCAINE 1% 10ML MDV 20 ML IJ (09:56)
[2023-12-08] MEDS: HEPARIN 1,000 UNITS/500ML NS (CATH LAB) 3000 UNIT IV (09:56)
[2023-12-08] MEDS: diphenhydrAMINE 50MG/ML VIAL 50 MG IV (09:57)
[2023-12-08] MEDS: PROMETHAZINE HCL 25MG/ML 1ML VIAL 25 MG IV (10:15)
[2023-12-08] MEDS: FENTANYL 100MCG/2ML VIAL 50 MCG IV (10:18)
[2023-12-08] MEDS: MIDAZOLAM HCL 1MG/ML 5ML VIAL 1 MG IV (10:18)
[2023-12-08] MEDS: IOPAMIDOL-370 (76%);100ML BOTTLE 50 ML IV (14:15)
== END 2023-12-08 13:33 | disposition home or self-care (01) ==
PROVIDERS: PCP Family Medicine; Visit Provider Internal Medicine
DX: I25.118 Atherosclerotic heart disease of native coronary artery with other forms of angina pectoris (principal); I48.0 Paroxysmal atrial fibrillation; Z79.01 Long term (current) use of anticoagulants; Z79.899 Other long term (current) drug therapy; I10 Essential (primary) hypertension; I47.10 Supraventricular tachycardia, unspecified
CPT/HCPCS: 80048; 85025; 93458; 99152; C1725; C1769; J1200; J1644; J2250; J2550; J3010; Q9967

== ENCOUNTER 2024-03-01 10:45 | Outpatient (CLI) | payer OTHER, SELFPAY ==
[2024-03-01 16:42] LABS: Basophils % 0.3 % (0.1-2.0); Eosinophils # 0.1 K/mm3 (0.0-0.4); Eosinophils % 1.4 % (0.1-12.0); Hematocrit 41.8 % (42.0-52.0); Hemoglobin 13.5 g/dL (14.1-18.0); Lymphocytes # 1.8 K/mm3 (0.7-4.5); Lymphocytes % 18.9 % (10-50); Mean Corpuscular HGB Conc 32.3 g/dL (31.8-35.4); Mean Corpuscular Hemoglobin 29.3 pg (27.0-31.2); Mean Corpuscular Volume 90.7 fl (80-94); Mean Platelet Volume 11.9 fl (7.4-10.4); Monocytes # 0.9 K/mm3 (0.1-1.0); Monocytes % 9.5 % (1.7-9.3); Neutrophils # 6.5 K/mm3 (1.8-7.8); Neutrophils % 69.7 % (37.0-80.0); Platelet Count 304 K/mm3 (142-424); Red Blood Count 4.61 M/mm3 (4.60-6.20); Red Cell Distribution Width 12.8 % (11.5-17.5); White Blood Count 9.3 K/mm3 (4.8-10.8)
[2024-03-01 17:31] LABS: Alanine Aminotransferase 48 U/L (12-78); Albumin Level 4.8 g/dl (3.5-5.0); Albumin/Globulin Ratio 1.8 (1.1-1.8); Alkaline Phosphatase 87 U/L (38-126); Anion Gap 17.5 mEq/L (5-15); Aspartate Amino Transferase 44 U/L (17-59); Bilirubin,Total 0.5 mg/dl (0.2-1.3); Blood Urea Nitrogen 16 mg/dl (9-20); Calcium 9.5 mg/dl (8.4-10.2); Carbon Dioxide 27 mmol/L (22.0-30.0); Chloride 100 mmol/L (98-107); Chol/HDL Ratio 3.6 (1-3.5); Cholesterol 115 mg/dl (140-200); Estimated Glomerular Filt Rate 103 ml/min (>60); GFR (African American) 125 ML/MIN (>60); Globulin 2.6 g/dL (1.3-3.2); Glucose 74 mg/dl (74-100); HDL Cholesterol 32 mg/dl (40-60); Potassium 4.5 mmoL/L (3.5-5.1); Sodium 140 mmol/L (136-145); Total Protein,Serum 7.4 g/dl (6.3-8.2); Triglycerides 82 mg/dl (30-150); VLDL Cholesterol 16 mg/dL (0-40)
[2024-03-01 17:46] LABS: T4 (Thyroxine) 9.2 ug/dl (5.53-11.0)
[2024-03-01 17:52] LABS: 25-OH Vitamin D, Total 44.3 ng/mL (30-100)
[2024-03-01 17:55] LABS: Hemoglobin A1C 5.4 % (4.0-6.0)
[2024-03-01 18:00] LABS: Thyroid Stimulating Hormone 0.74 uIU/mL (0.465-4.68)
[2024-03-01 18:46] LABS: HIV Combo NEGATIVE (Negative)
[2024-03-01 18:55] LABS: Hepatitis C Ab Qual. W/ RFX REACTIVE (Negative)
== END 2024-03-01 23:59 | disposition home or self-care (01) ==
LOC: LAB.DROPOF 03-02 08:35
PROVIDERS: PCP Nurse Practitioner Family; Visit Provider Nurse Practitioner Family
DX: R06.09 Other forms of dyspnea (principal); R53.83 Other fatigue; I48.0 Paroxysmal atrial fibrillation; I10 Essential (primary) hypertension; G47.00 Insomnia, unspecified; Z68.39 Body mass index [BMI] 39.0-39.9, adult
CPT/HCPCS: 80053; 80061; 82306; 83036; 84436; 84443; 85025; 86803; 87389; 87522